=== PATIENT | female | born 1970 | race Caucasian/White ===

== ENCOUNTER 2018-12-09 22:40 | Emergency (ER) | payer BC ==
[2018-12-09] MEDS ORDERED: IBUPROFEN 200 MG TAB PO ONE (23:36)
--- NOTE | 2018-12-10 00:26 | EDPHYS ---
Physician Documentation [facility] Name: Carmina Urban Age: 48 yrs Sex: Female : 1970 Arrival Date: 12/09/2018 Time: 22:42 Bed 23 Private MD: Steve Holley H ED Physician Anil Rodríguez HPI: 12/09 23:13 This 48 yrs old Female presents to ER via Ambulatory with complaints of Wrist rn Injury. 23:13 The patient or guardian reports decreased range of motion, injury, pain. The complaints rn affect the left wrist diffusely. Onset: The symptoms/episode began/occurred 10 day(s) ago. Modifying factors: The symptoms are alleviated by nothing, the symptoms are aggravated by movement. The patient has not experienced similar symptoms in the past. The patient has not recently seen a physician. Reports fell from standing 10 days ago, thought it would get better, still swollen and tender. Also reports hit back, hurts right lower back not along spine. . 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 - Social history:: Smoking status: Patient/guardian denies using tobacco. - Ebola Screening: : No symptoms or risks identified at this time. - Family history:: not pertinent. - Hospitalizations: : No recent hospitalization is reported. ROS: 23:13 Constitutional: Negative for fever, chills, and weight loss, Eyes: Negative for injury, rn pain, redness, and discharge, Neck: Negative for injury, pain, and swelling, Cardiovascular: Negative for chest pain, palpitations, and edema, Respiratory: Negative for shortness of breath, cough, wheezing, and pleuritic chest pain, Abdomen/GI: Negative for abdominal pain, nausea, vomiting, diarrhea, and constipation, Back: + low back pain MS/Extremity: + left wrist pain and deformity Skin: Negative for injury, rash, and discoloration, Neuro: Negative for headache, weakness, numbness, tingling, and seizure. Exam: 23:13 Constitutional: This is a well developed, well nourished patient who is awake, alert, rn and in no acute distress. Head/Face: Normocephalic, atraumatic. Eyes: Pupils equal round and reactive to light, extra-ocular motions intact. Lids and lashes normal. Conjunctiva and sclera are non-icteric and not injected. Cornea within normal limits. Periorbital areas with no swelling, redness, or edema. ENT: MMM Back: No spinal tenderness. No costovertebral tenderness. Full range of motion. Skin: Warm, dry with normal turgor. Normal color with no rashes, no lesions, and no evidence of cellulitis. MS/ Extremity: Pulses equal, no cyanosis. Neurovascular intact. + s shaped deformity of left wrist with swelling, no signs of compartment syndrome Neuro: Awake and alert, GCS 15, oriented to person, place, time, and situation. Cranial nerves II-XII grossly intact. Motor strength 5/5 in all extremities. Sensory grossly intact. Cerebellar exam normal. Normal gait. Vital Signs: 22:57 BP 154 / 96; Pulse 78; Resp 16; Temp 98.3; Pulse Ox 99% on R/A; Weight 74.84 kg (R); ak1 Height 5 ft. 6 in. (167.64 cm); Pain 4/10; 23:00 BP 151 / 97; Pulse 78; Resp 18; Pulse Ox 99% on R/A; ea 12/10 00:50 BP 150 / 87; Pulse 82; Resp 18; Pulse Ox 99% on R/A; ea 12/09 22:57 Body Mass Index 26.63 (74.84 kg, 167.64 cm) ak1 MDM: 12/09 22:48 Patient medically screened. rn 12/10 00:24 Differential diagnosis: closed fracture. Data reviewed: vital signs, nurses notes, rn radiologic studies, plain films, and as a result, I will discharge patient. Counseling: I had a detailed discussion with the patient and/or guardian regarding: the historical points, exam findings, and any diagnostic results supporting the discharge/admit diagnosis, radiology results, the need for outpatient follow up, to return to the emergency department if symptoms worsen or persist or if there are any questions or concerns that arise at home. Special discussion: I discussed with the patient/guardian in detail that at this point there is no indication for admission to the hospital. It is understood, however, that if the symptoms persist or worsen the patient needs to return immediately for re-evaluation. Based on the history and exam findings, there is no indication for further emergent testing or inpatient evaluation. I discussed with the patient/guardian the need to see the orthopedic surgeon for further evaluation of the symptoms. ED course: fracture is 10 days old, will splint and f/u with ortho. . 12/09 23:30 Order name: Urine Dipstick--Ancillary (enter results) [facility] 12/09 23:30 Order name: Urine --Ancillary (enter results) ut5 12/09 22:54 Order name: XRAY Wrist LEFT 3 view rn 12/09 22:54 Order name: XRAY Lumbar Spine (3 Views) rn 12/10 00:24 Order name: Splint - Sugar Tong - Forearm; Complete Time: 01:11 rn 12/10 00:48 Order name: Sling; Complete Time: 01:11 ea Administered Medications: 12/09 23:25 Drug: Motrin 600 mg Route: PO; mg2 12/10 00:24 Follow up: Response: No adverse reaction; Marked relief of symptoms mg2 Disposition: 12/10/18 00:25 Discharged to Home. Impression: Displaced transverse fracture of shaft of left radius, Fracture of ulna styloid process. - Condition is Stable. - Discharge Instructions: Wrist Fracture Treated With Immobilization, Wrist Splint. - Medication Reconciliation Form, Thank You Letter, Antibiotic Education, Prescription Opioid Use form. - Follow up: Jimmie Gordon MD; When: 2 - 3 days; Reason: Recheck today's complaints, Re-evaluation by your physician. - Problem is new. - Symptoms have improved. Signatures: Dispatcher [employer] EDMS Anil Rodríguez MD MD rn Krenek, Amber RN RN ak1 Talya Ascencio RN RN ea Gardose, Michele, RN RN mg2 Corrections: (The following items were deleted from the chart) 01:25 00:25 12/10/2018 00:25 Discharged to Home. Impression: Displaced transverse fracture of ea shaft of left radius; Fracture of ulna styloid process. Condition is Stable. Forms are Medication Reconciliation Form, Thank You Letter, Antibiotic Education, Prescription Opioid Use. Follow up: Jimmie Gordon; When: 2 - 3 days; Reason: Recheck today's complaints, Re-evaluation by your physician. Problem is new. Symptoms have improved. rn
--- NOTE | 2018-12-10 00:26 | ER ---
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 Transition of care: patient was not received from another setting of care. Onset of symptoms is unknown. Risk Assessment: Do you want to hurt yourself or someone else? Patient reports no desire to harm self or others. Care prior to arrival: None. 22:58 Acuity: ELKIN 4 ak1 22:58 Method Of Arrival: Ambulatory ak1 23:35 Initial Sepsis Screen: Does the patient meet any 2 criteria? No. Patient's initial ea sepsis screen is negative. Does the patient have a suspected source of infection? No. Patient's initial sepsis screen is negative. Triage Assessment: 22:59 General: Appears in no apparent distress. ak1 22:59 General: Behavior is calm, cooperative. 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 - Social history:: Smoking status: Patient/guardian denies using tobacco. - Ebola Screening: : No symptoms or risks identified at this time. - Family history:: not pertinent. - Hospitalizations: : No recent hospitalization is reported. Screenin:35 Abuse screen: Denies threats or abuse. Nutritional screening: No deficits noted. ea Tuberculosis screening: No symptoms or risk factors identified. Fall Risk None identified. Assessment: 23:35 General: Appears uncomfortable, Behavior is calm, cooperative, appropriate for age. ea Pain: Complains of pain in left wrist. Neuro: Level of Consciousness is awake, alert, obeys commands, Oriented to person, place, time, situation. Cardiovascular: Patient's skin is warm and dry. Respiratory: Airway is patent Respiratory effort is even, unlabored, Respiratory pattern is regular, symmetrical. Derm: Skin is pink, warm \T\ dry. Musculoskeletal: Swelling present in left wrist. 23:48 Reassessment: Patient and/or family updated on plan of care and expected duration. Pain ea level reassessed. Patient is alert, oriented x 3, equal unlabored respirations, skin warm/dry/pink. Pt taken to radiology. 12/10 00:06 Reassessment: Patient and/or family updated on plan of care and expected duration. Pain ea level reassessed. Patient is alert, oriented x 3, equal unlabored respirations, skin warm/dry/pink. Pt returned from radiology. 01:17 Reassessment: Patient and/or family updated on plan of care and expected duration. Pain ea level reassessed. Patient is alert, oriented x 3, equal unlabored respirations, skin warm/dry/pink. Discharge instruction given to patient, verbalized the understanding of instruction. Pt left with significant other, verbalized the understanding of instruction. Pt left ambulatory with tolerating well. Patient states feeling better. Vital Signs: 12/09 22:57 BP 154 / 96; Pulse 78; Resp 16; Temp 98.3; Pulse Ox 99% on R/A; Weight 74.84 kg (R); ak1 Height 5 ft. 6 in. (167.64 cm); Pain 4/10; 23:00 BP 151 / 97; Pulse 78; Resp 18; Pulse Ox 99% on R/A; ea 12/10 00:50 BP 150 / 87; Pulse 82; Resp 18; Pulse Ox 99% on R/A; ea 12/09 22:57 Body Mass Index 26.63 (74.84 kg, 167.64 cm) ak1 ED Course: 12/09 22:42 Patient arrived in ED. am2 22:42 Steve Holley DO is Private Physician. am2 22:48 Anil Rodríguez MD is Attending Physician. rn 22:58 Triage completed. ak1 22:59 Arm band placed on Patient placed in an exam room, on a stretcher, on pulse oximetry, ak1 Patient notified of wait time. 23:07 Talya Ascencio, RN is Primary Nurse. ea 23:35 Patient has correct armband on for positive identification. Bed in low position. Call ea light in reach. Side rails up X 1. 23:57 XRAY Wrist LEFT 3 view In Process Unspecified. EDMS 23:57 Patient moved to radiology via wheelchair. kw 23:57 X-ray completed. Patient tolerated procedure well. kw 23:57 Patient moved back from radiology. kw 23:57 XRAY Lumbar Spine (3 Views) In Process Unspecified. EDMS 04 00:24 Jimmie Gordon MD is Referral Physician. rn 00:55 Orthoglass splint: Sugar tong splint applied on left arm. Completed by Carole RUTH techsivan pt tolerated well. 01:24 No provider procedures requiring assistance completed. Patient did not have IV access ea during this emergency room visit. Administered Medications: 12/09 23:25 Drug: Motrin 600 mg Route: PO; mg2 12/10 00:24 Follow up: Response: No adverse reaction; Marked relief of symptoms mg2 Outcome: 00:25 Discharge ordered by . rn 01:17 Discharged to home ambulatory, with significant other. ea 01:17 Condition: improved 01:17 Discharge instructions given to patient, Instructed on discharge instructions, follow up and referral plans. Demonstrated understanding of instructions, follow-up care. 01:25 Patient left the ED. ea Signatures: Dispatcher [employer] EDME Anil Rodríguez MD MD rn Whitley, Kimberlee kw Krenek, Amber RN RN ak1 Kimberli Vang Elena, RN Dagoberto Ennis ea RN RN mg2
[2018-12-10 01:11] LABS: Urine Blood NEGATIVE (NEG); Urine Glucose NEGATIVE (NEG); Urine Protein NEGATIVE (NEG); Urine pH 6.5 (5.0-7.0)
--- NOTE | 2018-12-10 07:50 | RAD REPORT ---
EXAM DESCRIPTION: RAD - Lumbar Spine 3 Views - 12/09/2018 11:57 pm CLINICAL HISTORY: Back pain FINDINGS: Scij-uh-edwtdtan scoliosis involves the spine. No fracture or dislocation is noted. Mild spondylosis is seen. Bones appear osteoporotic
--- NOTE | 2018-12-10 07:52 | RAD REPORT ---
EXAM DESCRIPTION: RAD - Wrist Left 3 View - 12/09/2018 11:59 pm CLINICAL HISTORY: Left wrist pain status post injury FINDINGS: Impacted, comminuted fracture involves the distal radius with angulation present at fractu re site. Comminuted avulsion fracture involves the ulnar styloid process No dislocation
== END 2018-12-10 01:25 | disposition home or self-care (01) ==
LOC: ER 22:40
PROC: 2W3DX1Z Immobilization of Left Lower Arm using Splint (ICD-10-PCS; principal; 2018-12-10)
DX: S52.322A Displaced transverse fracture of shaft of left radius, initial encounter for closed fracture (principal); S52.612A Displaced fracture of left ulna styloid process, initial encounter for closed fracture; W18.30XA Fall on same level, unspecified, initial encounter; Y93.9 Activity, unspecified; Y92.9 Unspecified place or not applicable
CPT/HCPCS: 72100; 81003; 81025; 99284

== ENCOUNTER 2019-10-08 17:55 | Emergency (ER) | payer BC ==
--- OUTSIDE RECORDS SUMMARY | 2019-10-08 17:57 | XMS REPORT ---
:1970 [facility] Address [address] [place] [address] Care Team Providers Name Role Phone Unavailable Unavailable Unavailable Problems This patient has no known problems. Allergies, Adverse Reactions, Alerts This patient has no known allergies or adverse reactions. Medications This patient has no known medications.
--- NOTE | 2019-10-08 19:54 | RAD REPORT ---
EXAM DESCRIPTION: RAD - Wrist Left 3 View - 10/08/2019 7:43 pm CLINICAL HISTORY: PAIN Pain COMPARISON: Wrist Left 3 View dated 12/09/2018 FINDINGS: Fracture is present extending to the articular surface involving the proximal aspect of th e first and second metacarpals. Moderate adjacent soft tissue swelling noted. Hardware is present i n the distal radius from prior injury. IMPRESSION: Intraarticular fractures involving proximal aspect of the first and second metacarpals.
[2019-10-08] MEDS ORDERED: KETOROLAC 30 MG/ML INJ ONE (20:30)
--- NOTE | 2019-10-08 20:41 | ER ---
Nurse's Notes [facility] Name: Carmina Urban Age: 49 yrs Sex: Female : 1970 Arrival Date: 10/08/2019 Time: 17:57 Bed 8 Private MD: Steve Holley H Diagnosis: Displaced fracture of neck of first metacarpal bone, left hand;Displaced fracture of base of second metacarpal bone. left hand Presentation: 10/08 18:04 Presenting complaint: Significant other states: i was at work and she called me and tw2 told she fell and she was crying, she is saying her left wrist hurts, she has scoliosis and is supposed to start some injections but she didn't feel good yesterday. Transition of care: patient was not received from another setting of care. Onset of symptoms was October 08, 2019. Risk Assessment: Do you want to hurt yourself or someone else? Patient reports no desire to harm self or others. Initial Sepsis Screen: Does the patient meet any 2 criteria? No. Patient's initial sepsis screen is negative. Does the patient have a suspected source of infection? No. Patient's initial sepsis screen is negative. Care prior to arrival: None. 18:04 Method Of Arrival: Wheelchair tw2 18:04 Acuity: ELKIN 3 tw2 18:06 Presenting complaint: Significant other states: she also took an ambien because she tw2 didn't sleep last night, she took it about 3pm today. Triage Assessment: 18:07 General: Appears in no apparent distress. Behavior is drowsy. Pain: Complains of pain tw2 in left wrist. 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 - Coronavirus screen:: The patient has NOT traveled to [place] in the past 14 days. - Social history:: Smoking status: . - Ebola Screening: : Patient denies travel to an Ebola-affected area in the 21 days before illness onset. Screenin:20 Abuse screen: Denies threats or abuse. Nutritional screening: No deficits noted. jd3 Tuberculosis screening: No symptoms or risk factors identified. Fall Risk Ambulatory Aid- None/Bed Rest/Nurse Assist (0 pts). Mental Status- Oriented to own ability (0 pts). Total Betts Fall Scale indicates No Risk (0-24 pts). Assessment: 19:15 General: Appears in no apparent distress. uncomfortable, well groomed, Behavior is jd3 calm, cooperative, drowsy. Pain: Complains of pain in left wrist and left forearm Pain does not radiate. Quality of pain is described as aching, tender, Pain began suddenly, Is continuous. Neuro: Level of Consciousness is awake, alert, obeys commands, Oriented to person, place, time, situation, Denies syncope . Cardiovascular: Denies chest pain, Patient's skin is warm and dry. Respiratory: Airway is patent Respiratory effort is even, unlabored, Respiratory pattern is regular, symmetrical, Denies cough, shortness of breath. GI: No signs and/or symptoms were reported involving the gastrointestinal system. : No signs and/or symptoms were reported regarding the genitourinary system. EENT: No signs and/or symptoms were reported regarding the EENT system. Derm: Skin is intact, Skin is dry, Skin is normal, Skin temperature is warm Bruising that is dark purple, green, yellow, on left forearm and left wrist. Musculoskeletal: Circulation, motion, and sensation intact. Range of motion: intact in all extremities. 20:15 Reassessment: Patient appears in no apparent distress at this time. No changes from jd3 previously documented assessment. Patient and/or family updated on plan of care and expected duration. Pain level reassessed. Patient is alert, oriented x 3, equal unlabored respirations, skin warm/dry/pink. 21:17 Reassessment: Patient appears in no apparent distress at this time. Patient and/or jd3 family updated on plan of care and expected duration. Pain level reassessed. Patient is alert, oriented x 3, equal unlabored respirations, skin warm/dry/pink. pt reporting discomfort of splint location. splint adjusted, awaiting discharge. 21:31 Reassessment: Patient appears in no apparent distress at this time. Patient and/or jd3 family updated on plan of care and expected duration. Pain level reassessed. Patient is alert, oriented x 3, equal unlabored respirations, skin warm/dry/pink. pt reported understanding discharge instructions. Vital Signs: 18:08 BP 135 / 107; Pulse 94; Resp 17; Temp 97.2(TE); Pulse Ox 100% on R/A; Weight 65.77 kg tw2 (R); Pain 5/10; 20:45 BP 139 / 92; Pulse 81; Resp 17 S; Pulse Ox 100% on R/A; jd3 21:00 BP 140 / 98; Pulse 98; Resp 16 S; Pulse Ox 100% on R/A; jd3 ED Course: 17:57 Patient arrived in ED. mr 17:57 Steve Holley DO is Private Physician. mr 18:06 Triage completed. tw2 18:07 Arm band placed on. tw2 18:14 Иван Gruber, RN is Primary Nurse. em 19:14 Tyson Lieberman MD is Attending Physician. ps1 19:20 Patient has correct armband on for positive identification. Bed in low position. Call jd3 light in reach. Side rails up X 1. Adult w/ patient. 19:45 Wrist Left (3 View) XRAY In Process Unspecified. EDMS 20:38 Channing Romero MD is Referral Physician. ps1 20:38 Steve Holley DO is Referral Physician. ps1 21:00 Orthoglass splint: Sugar tong splint applied on left arm. placed by Joe industrial technician. jd3 21:30 No provider procedures requiring assistance completed. Patient did not have IV access jd3 during this emergency room visit. Administered Medications: 20:51 Drug: TORadol 30 mg Route: IM; Site: right deltoid; jd3 21:30 Follow up: Response: No adverse reaction jd3 Outcome: 20:40 Discharge ordered by . ps1 21:30 Discharged to home via wheelchair, with family. jd3 21:30 Condition: stable 21:30 Discharge instructions given to patient, family, Instructed on discharge instructions, follow up and referral plans. Demonstrated understanding of instructions, follow-up care. 21:33 Patient left the ED. jd3 Signatures: Dispatcher [employer] EDMS Sai Maddie mr YasmaniИван, RN RN Radha Curiel RN RN tw2 Gen Paulino RN RN jd3 Tyson Lieberman MD MD ps1 Corrections: (The following items were deleted from the chart) 21:33 21:00 BP 140 / 98; Pulse 98bpm; Resp 86bpm; Spontaneous; Pulse Ox 100% RA; isabelle walton
--- NOTE | 2019-10-08 20:42 | EDPHYS ---
Physician Documentation [facility] Name: Carmina Urban Age: 49 yrs Sex: Female : 1970 Arrival Date: 10/08/2019 Time: 17:57 Bed 8 Private MD: Steve Holley H ED Physician Tyson Lieberman HPI: 10/08 19:44 This 49 yrs old Female presents to ER via Wheelchair with complaints of Fall ps1 Injury. 19:44 Patient was going to bed and took Ambien. She additionally takes Suboxone. Became ps1 unsteady likely 2/2 medication. Fell and now has pain to left wrist. Pain is rated as moderate and worse with movement which is severe. ROM decreased. She states that she did not hit her head. No LOC. Alert and oriented at this time without FND. Not on blood thinners. . 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 - Coronavirus screen:: The patient has NOT traveled to [place] in the past 14 days. - Social history:: Smoking status: . - Ebola Screening: : Patient denies travel to an Ebola-affected area in the 21 days before illness onset. ROS: 19:44 Constitutional: Negative for fever, chills, and weight loss, Eyes: Negative for injury, ps1 pain, redness, and discharge, Cardiovascular: Negative for chest pain, palpitations, and edema, Respiratory: Negative for shortness of breath, cough, wheezing, and pleuritic chest pain, Abdomen/GI: Negative for abdominal pain, nausea, vomiting, diarrhea, and constipation, Skin: Negative for injury, rash, and discoloration, Neuro: Negative for headache, weakness, numbness, tingling, and seizure. 19:44 MS/extremity: Positive for injury or acute deformity, contusion, pain, tenderness, of the left wrist. 19:44 Psych: Negative for depression, suicidal ideation. Exam: 19:44 Head/Face: Normocephalic, atraumatic. ps1 19:44 Chest/axilla: Normal chest wall appearance and motion. Nontender with no deformity. No lesions are appreciated. Cardiovascular: Regular rate and rhythm. No gallops, murmurs, or rubs. Normal PMI, no JVD. No pulse deficits. Respiratory: Lungs have equal breath sounds bilaterally, clear to auscultation and percussion. No rales, rhonchi or wheezes noted. No increased work of breathing, no retractions or nasal flaring. Abdomen/GI: Soft, non-tender, with normal bowel sounds. No distension or tympany. No guarding or rebound. No evidence of tenderness throughout. Skin: Warm, dry with normal turgor. Normal color with no rashes, no lesions, and no evidence of cellulitis. Neuro: Awake and alert, GCS 15, oriented to person, place, time, and situation. Cranial nerves II-XII grossly intact. Sensory grossly intact. 19:44 Constitutional: The patient appears in no acute distress, hypersomnolent c/w stated medications. 19:44 Head/face: Exam is negative for contusion, tenderness. 19:44 Eyes: Pupils: constricted, Extraocular movements: intact throughout. 19:44 Musculoskeletal/extremity: Extremities: grossly normal except: noted in the left wrist: decreased ROM, pain, swelling, tenderness. Vital Signs: 18:08 BP 135 / 107; Pulse 94; Resp 17; Temp 97.2(TE); Pulse Ox 100% on R/A; Weight 65.77 kg tw2 (R); Pain 5/10; 20:45 BP 139 / 92; Pulse 81; Resp 17 S; Pulse Ox 100% on R/A; jd3 21:00 BP 140 / 98; Pulse 98; Resp 16 S; Pulse Ox 100% on R/A; jd3 Procedures: 20:31 Splinting: Splint applied to left wrist using Orthoglass splint, applied by tech. ps1 Examined by me, post splint application: neurovascular intact, 2+ distal pulses palpable, brisk capillary refill noted, Patient tolerated well. MDM: 20:07 Patient medically screened. ps1 20:31 Differential diagnosis: contusion, fracture, strain. Data reviewed: vital signs, nurses ps1 notes, radiologic studies, plain films, and as a result, I will discharge patient. Counseling: I had a detailed discussion with the patient and/or guardian regarding: the historical points, exam findings, and any diagnostic results supporting the discharge/admit diagnosis, radiology results, the need for outpatient follow up, to return to the emergency department if symptoms worsen or persist or if there are any questions or concerns that arise at home. 20:31 ED course: 49 y/o F presenting with hand and wrist pain 2/2 fall.. No head injury. Has ps1 proximal MCP fracture that was splinted. OP follow up with orthopedics. NV intact. Stable for discharge. Home with pain medications previously prescribed by pain physician. . 10/08 19:25 Order name: Wrist Left (3 View) XRAY; Complete Time: 20:17 ps1 Administered Medications: 20:51 Drug: TORadol 30 mg Route: IM; Site: right deltoid; jd3 21:30 Follow up: Response: No adverse reaction jd3 Disposition: 10/08/19 20:40 Discharged to Home. Impression: Displaced fracture of neck of first metacarpal bone, left hand, Displaced fracture of base of second metacarpal bone. left hand. - Condition is Stable. - Discharge Instructions: Metacarpal Fracture. - Medication Reconciliation Form, Thank You Letter, Antibiotic Education, Prescription Opioid Use form. - Follow up: Channing Romero MD; When: 1 week; Reason: Further diagnostic work-up, Recheck today's complaints, Continuance of care. Follow up: Steve Holley DO; When: As needed; Reason: Further diagnostic work-up, Recheck today's complaints, Continuance of care, Re-evaluation by your physician. - Problem is new. - Symptoms have improved. Signatures: Dispatcher [employer] EDMS Radha Ralph RN RN tw2 Gen Paulino RN RN jd3 Tyson Lieberman MD MD ps1 Corrections: (The following items were deleted from the chart) 21:33 20:40 10/08/2019 20:40 Discharged to Home. Impression: Displaced fracture of neck of jd3 first metacarpal bone, left hand; Displaced fracture of base of second metacarpal bone. left hand. Condition is Stable. Forms are Medication Reconciliation Form, Thank You Letter, Antibiotic Education, Prescription Opioid Use. Follow up: Dr. Channing Romero; When: 1 week; Reason: Further diagnostic work-up, Recheck today's complaints, Continuance of care. Follow up: Steve Holley; When: As needed; Reason: Further diagnostic work-up, Recheck today's complaints, Continuance of care, Re-evaluation by your physician. Problem is new. Symptoms have improved. ps1
[2019-10-08 22:40] VITALS: TEMP 97.2; O2SAT 100
[2019-10-08 22:42] VITALS: BP 140/98
== END 2019-10-08 21:33 | disposition home or self-care (01) ==
LOC: ER 17:55
PROC: 2W3DX1Z Immobilization of Left Lower Arm using Splint (ICD-10-PCS; principal; 2019-10-08)
DX: S62.311A Displaced fracture of base of second metacarpal bone, left hand, initial encounter for closed fracture (principal); S62.252A Displaced fracture of neck of first metacarpal bone, left hand, initial encounter for closed fracture; W19.XXXA Unspecified fall, initial encounter; Y93.9 Activity, unspecified; Y92.9 Unspecified place or not applicable; F32.9 Major depressive disorder, single episode, unspecified; Z88.5 Allergy status to narcotic agent
CPT/HCPCS: 96372; 99283

== ENCOUNTER 2020-04-28 17:08 | Emergency (ER) | payer BC ==
--- OUTSIDE RECORDS SUMMARY | 2020-04-28 17:10 | XMS REPORT | Continuity of Care Document ---
:1970 Author Organization [facility] t Address [address] [place] [address] Care Team Providers Name Role Phone SYSTEM, NOT IN Attending Clinician Unavailable Problems This patient has no known problems. Allergies, Adverse Reactions, Alerts This patient has no known allergies or adverse reactions. Medications This patient has no known medications. Procedures This patient has no known procedures. Encounters Start End Encounter Admission Attending Care Care Encounter Source Date/Time Date/Time Type Type Clinicians Facility Department ID 2020-02-12 Outpatient SYSTEM, [facility] [id number] 13:15:12 PROVIDER Harjinder o n Results This patient has no known results.
--- NOTE | 2020-04-28 19:19 | RAD REPORT ---
EXAM DESCRIPTION: RAD - Shoulder Left 2 View - 04/28/2020 6:59 pm CLINICAL HISTORY: PAIN, fall, shoulder pain COMPARISON: No comparisons TECHNIQUE: Internal and external rotation views of the left shoulder were obtained. FINDINGS: No fracture or dislocation of the proximal humerus. AC joint is normal. Midshaft clavicle fracture is present. There is 2 centimeter of overlap of the fracture fragments. Lateral fracture fra gment is displaced inferiorly to the medial fracture fragment. IMPRESSION: Midshaft left clavicle fracture as detailed.
--- NOTE | 2020-04-28 19:36 | ER ---
Nurse's Notes [facility] Name: Carmina Urban Age: 49 yrs Sex: Female : 1970 Arrival Date: 04/28/2020 Time: 17:09 Bed 17 Private MD: Steve Holley H Diagnosis: Fracture of clavicle Presentation: 04/28 17:22 Chief complaint: Spouse and/or significant other states: Lost balance and fell today. ca1 Landed on L side of the body. Reports L shoulder pain. Denies LOC. Denies hitting head. Coronavirus screen: Client denies travel out of the [place] in the last 14 days. At this time, the client does not indicate any symptoms associated with coronavirus-19. Ebola Screen: Patient negative for fever greater than or equal to 101.5 degrees Fahrenheit, and additional compatible Ebola Virus Disease symptoms Patient denies exposure to infectious person. Patient denies travel to an Ebola-affected area in the 21 days before illness onset. No symptoms or risks identified at this time. Initial Sepsis Screen: Does the patient meet any 2 criteria? No. Patient's initial sepsis screen is negative. Does the patient have a suspected source of infection? No. Patient's initial sepsis screen is negative. Risk Assessment: Do you want to hurt yourself or someone else? Patient reports no desire to harm self or others. Onset of symptoms was April 28, 2020. 17:22 Method Of Arrival: Wheelchair ca1 17:22 Acuity: ELKIN 4 ca1 Triage Assessment: 19:35 Injury Description: Deformity sustained to left clavicle. 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 - Social history:: Smoking status: Patient denies any tobacco usage or history of. Screenin:30 Abuse screen: Denies threats or abuse. Denies injuries from another. Nutritional jr10 screening: No deficits noted. Tuberculosis screening: No symptoms or risk factors identified. Fall Risk Fall in past 12 months (25 points). No secondary diagnosis (0 pts). No IV (0 pts). Ambulatory Aid- None/Bed Rest/Nurse Assist (0 pts). Gait- Normal/Bed Rest/Wheelchair (0 pts) Mental Status- Oriented to own ability (0 pts). Assessment: 18:30 General: Appears uncomfortable, Behavior is drowsy. Pain: Complains of pain in anterior jr10 aspect of left shoulder and posterior aspect of left shoulder Pain does not radiate. Pain began this morning s/p fall Is continuous, Alleviated by nothing. Aggravated by increased activity. Neuro: No deficits noted. Denies denies LOC or head trauma. Respiratory: No deficits noted. Airway is patent Respiratory effort is even, unlabored, Respiratory pattern is regular, symmetrical. Musculoskeletal: Circulation, motion, and sensation intact. Capillary refill < 3 seconds, Range of motion: limited in left shoulder Tenderness present in anterior aspect of left shoulder Reports pain in anterior aspect of left shoulder and posterior aspect of left shoulder. 19:30 General: Appears in no apparent distress. comfortable, Behavior is calm, cooperative. mg2 Cardiovascular: Capillary refill < 3 seconds Patient's skin is warm and dry. Respiratory: No deficits noted. Vital Signs: 17:22 BP 144 / 103; Pulse 83; Resp 16 S; Temp 97.8(TE); Pulse Ox 100% on R/A; Weight 67.13 kg ca1 (R); Height 5 ft. 6 in. (167.64 cm) (R); 19:30 BP 135 / 78; Pulse 80; Resp 18; Temp 98.0; Pulse Ox 100% on R/A; mg2 17:22 Body Mass Index 23.89 (67.13 kg, 167.64 cm) ca1 ED Course: 17:09 Patient arrived in ED. ag5 17:09 Steve Holley DO is Private Physician. ag5 17:25 Triage completed. ca1 17:25 Arm band placed on right wrist. ca1 18:17 Gonzalez Hamilton PA is PHCP. m 18:17 Anil Rodríguez MD is Attending Physician. jmm 18:30 Patient has correct armband on for positive identification. Bed in low position. Call jr10 light in reach. Side rails up X2. 19:00 Shoulder Left (2 View) XRAY In Process Unspecified. EDMS 19:15 Report given to KARISSA Arenas. jr10 19:15 No provider procedures requiring assistance completed. Patient did not have IV access jr10 during this emergency room visit. 19:31 Dagoberto Richter, RN is Primary Nurse. mg2 19:35 Jimmie Gordon MD is Referral Physician. [facility] 19:42 Sling \T\ swathe to left arm. mg2 Administered Medications: No medications were administered Outcome: 19:35 Discharge ordered by . [facility] 19:50 Discharged to home via wheelchair. mg2 19:50 Condition: stable 19:50 Discharge instructions given to patient, family, Instructed on discharge instructions, follow up and referral plans. Demonstrated understanding of instructions, follow-up care. 19:51 Patient left the ED. mg2 Signatures: Dispatcher [employer] EDMS Gonzalez Hamilton PA PA [facility] Dagoberto Richter, RN RN mg2 Mis Gonzalez RN RN [facility] Loena Peres 5 Nasreen Gibbs RN RN jr10
--- NOTE | 2020-04-28 19:36 | EDPHYS ---
Physician Documentation [facility] Name: Carmina Urban Age: 49 yrs Sex: Female : 1970 Arrival Date: 04/28/2020 Time: 17:09 Bed 17 Private MD: Steve Holley H ED Physician Anil Rodríguez HPI: 04/28 17:27 This 49 yrs old Female presents to ER via Wheelchair with complaints of jmm Shoulder Injury, Fall Injury. 17:27 The patient or guardian complains of an injury, pain. Onset: The symptoms/episode jmm began/occurred acutely. Modifying factors: the symptoms are alleviated by nothing. The symptoms are aggravated by nothing. Associated signs and symptoms: Pertinent negatives:. This is a 49 year old female with a history of scoliosis that presents to the ED with complaints of left shoulder pain which occurred after a fall which occurred earlier today. Patient lost balance and fell on her left side. Denies any other known injury. . 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 - Social history:: Smoking status: Patient denies any tobacco usage or history of. ROS: 17:27 Constitutional: Negative for fever, chills, and weight loss, Cardiovascular: Negative jmm for chest pain, palpitations, and edema, Respiratory: Negative for shortness of breath, cough, wheezing, and pleuritic chest pain. 17:27 MS/extremity: Positive for injury or acute deformity, pain. 17:27 All other systems are negative. Exam: 17:27 Constitutional: This is a well developed, well nourished patient who is awake, alert, jmm and in no acute distress. Head/Face: atraumatic. Eyes: EOMI, no conjunctival erythema appreciated ENT: Moist Mucus Membranes Neck: Trachea midline, Supple 17:27 Cardiovascular: Regular rate and rhythm. No edema appreciated Respiratory: Normal respirations, no respiratory distress appreciated Abdomen/GI: Non distended, soft Back: Normal ROM Skin: General appearance color normal Neuro: Awake and alert, normal gait Psych: Behavior is normal, Mood is normal, Patient is cooperative and pleasant 17:27 Chest/axilla: swelling noted to the mid clavicular region. 17:27 Musculoskeletal/extremity: painful rom noted to the left shoulder. 17:27 Skin: Appearance: Color: normal in color. 17:27 Neuro: Orientation: is normal, Mentation: is normal, Memory: is normal. 17:27 Psych: Behavior/mood is pleasant, cooperative. Vital Signs: 17:22 BP 144 / 103; Pulse 83; Resp 16 S; Temp 97.8(TE); Pulse Ox 100% on R/A; Weight 67.13 kg ca1 (R); Height 5 ft. 6 in. (167.64 cm) (R); 19:30 BP 135 / 78; Pulse 80; Resp 18; Temp 98.0; Pulse Ox 100% on R/A; mg2 17:22 Body Mass Index 23.89 (67.13 kg, 167.64 cm) ca1 MDM: 19:09 Patient medically screened. [place] 19:34 Data reviewed: vital signs, nurses notes. Counseling: I had a detailed discussion with modesta the patient and/or guardian regarding: the historical points, exam findings, and any diagnostic results supporting the discharge/admit diagnosis, radiology results, the need for outpatient follow up, to return to the emergency department if symptoms worsen or persist or if there are any questions or concerns that arise at home. Medical screen evaluation completed. EMTALA emergency medical condition absent. ED course: Patient is alert and non toxic in appearance in the ED. Patient is advised to follow up with ortho for further evaluation. . 04/28 17:26 Order name: Shoulder Left (2 View) XRAY; Complete Time: 19:22 ca1 04/28 19:22 Order name: Sling; Complete Time: 19:38 [facility] Administered Medications: No medications were administered Disposition: 04/28/20 19:35 Discharged to Home. Impression: Fracture of clavicle. - Condition is Stable. - Discharge Instructions: Clavicle Fracture. - Medication Reconciliation Form, Thank You Letter, Antibiotic Education, Prescription Opioid Use form. - Follow up: Jimmie Gordon MD; When: 2 - 3 days; Reason: Recheck today's complaints, Continuance of care, Re-evaluation by your physician. Addendum: 04/30/2020 19:28 Co-signature as Attending Physician, Anil Rodríguez MD. r n Signatures: Dispatcher [employer] EDMS Gonzalez Hamilton PA PA jmm Nieto, Roman, MD MD rn Gardose, Michele, RN RN mg2 Mis Gonzalez RN RN ca1 Corrections: (The following items were deleted from the chart) 04/28 19:51 19:35 04/28/2020 19:35 Discharged to Home. Impression: Fracture of clavicle. Condition mg2 is Stable. Forms are Medication Reconciliation Form, Thank You Letter, Antibiotic Education, Prescription Opioid Use. Follow up: Jimmie Gordon; When: 2 - 3 days; Reason: Recheck today's complaints, Continuance of care, Re-evaluation by your physician. [place]
[2020-04-28 20:47] VITALS: BP 144/103; TEMP 97.8; O2SAT 100
== END 2020-04-28 19:51 | disposition home or self-care (01) ==
LOC: ER 17:08
DX: S42.002A Fracture of unspecified part of left clavicle, initial encounter for closed fracture (principal); W19.XXXA Unspecified fall, initial encounter; Y93.9 Activity, unspecified; Y92.9 Unspecified place or not applicable; Z88.5 Allergy status to narcotic agent
CPT/HCPCS: 99283